=== PATIENT | female | born 1950 | race Caucasian/White ===

== ENCOUNTER 2018-08-29 08:02 | Outpatient (CLI) | payer OTHER ==
--- NOTE | 2018-08-29 08:52 | MMO ---
Bilateral MAMMO Bilat Screen [facility]DI+BLADIMIR. CLINICAL HISTORY: Patient is 68 years old and is seen for screening. The patient has the following family history of breast cancer: mother, at age 47, malignant (generic). The patient has no personal history of cancer. The patient has a history of left Excisional Biopsy more than 10 years ago - benign. VIEWS: The views performed were: bilateral craniocaudal with tomosynthesis; bilateral mediolateral oblique with tomosynthesis; and bilateral exaggerated craniocaudal. MAMMOGRAM FINDINGS: The breasts are heterogeneously dense, which could obscure a lesion on mammography. There is an area of architectural distortion seen in the lower-inner region of the left breast. In the right breast, there are no suspicious masses, calcifications or areas of architectural distortion. IMPRESSION: AREA OF ARCHITECTURAL DISTORTION IN THE LEFT BREAST REQUIRES ADDITIONAL EVALUATION. SPOT COMPRESSION IS RECOMMENDED. AN ULTRASOUND EXAM IS RECOMMENDED IF NEEDED. ADDITIONAL IMAGING. THE ABNORMALITY COULD REPRESENT POSTSURGICAL CHANGES. COMPRESSION VIEWS SHOULD BE PERFORMED WITH A SCAR MARKER IN PLACE. THE RESULTS OF THIS EXAM WERE SENT TO THE PATIENT. ACR BI-RADS Category 0 - Incomplete: Need additional imaging evaluation. [facility] will notify the patient of the need for additional imaging services. MAMMOGRAPHY NOTE: 1. A negative mammogram report should not delay a biopsy if a dominant of clinically suspicious mass is present. 2. Approximately 10% to 15% of breast cancers are not detected by mammography. 3. Adenosis and dense breasts may obscure an underlying neoplasm. Reported by: DAJUAN PENG MD Electonically Signed: [id number]
== END 2018-08-29 08:03 | disposition home or self-care (01) ==
LOC: BICMAMMO 08:02
PROVIDERS: ATTEND Family Medicine
DX: Z12.31 Encounter for screening mammogram for malignant neoplasm of breast (principal); Z80.3 Family history of malignant neoplasm of breast
CPT/HCPCS: 77063; 77067

== ENCOUNTER 2018-09-03 08:23 | Outpatient (CLI) | payer OTHER ==
--- NOTE | 2018-09-03 09:35 | MMO ---
Left Breast MAMMO Unilat Diag DDI LT+BLADIMIR. CLINICAL HISTORY: Patient is 68 years old and is seen for diagnostic exam. The patient has the following family history of breast cancer: mother, at age 47, malignant (generic). The patient has no personal history of cancer. The patient has a history of left Excisional Biopsy more than 10 years ago - benign. VIEWS: The views performed were: left craniocaudal spot compression with tomosynthesis; left mediolateral oblique spot compression with tomosynthesis; and left mediolateral with tomosynthesis. FILMS COMPARED: The present examination has been compared to prior imaging studies performed at [facility] on 08/29/2018 and 09/03/2018. MAMMOGRAM FINDINGS: The breast is heterogeneously dense, which could obscure a lesion on mammography. There is a high density, irregular mass measuring 22 millimeters with spiculated margins seen in the middle region of the left breast at 7 o'clock. IMPRESSION: MASS IN THE LEFT BREAST IS SUSPICIOUS. AN ULTRASOUND-GUIDED BREAST BIOPSY IS RECOMMENDED. THE PATIENT WAS NOTIFIED OF THE EXAM RESULTS PRIOR TO LEAVING THE CENTER. DR. FISHER AT THE OFFICE OF THE PATIENT'S REFERRING PHYSICIAN, DAJUAN FISHER, WAS NOTIFIED OF THE EXAM RESULTS BY TELEPHONE ON 09/03/18 AT 0924.. THE RESULTS OF THIS EXAM WERE SENT TO THE PATIENT. ACR BI-RADS Category 4 - Suspicious abnormality - biopsy should be considered MAMMOGRAPHY NOTE: 1. A negative mammogram report should not delay a biopsy if a dominant of clinically suspicious mass is present. 2. Approximately 10% to 15% of breast cancers are not detected by mammography. 3. Adenosis and dense breasts may obscure an underlying neoplasm. Reported by: AAYUSH BOLAÑOS MD Electonically Signed: [id number]
--- NOTE | 2018-09-03 10:20 | ULT ---
LEFT BREAST DIAGNOSTIC ULTRASOUND: INDICATION: Left breast mass. TECHNIQUE: Walsh scale color Doppler images were obtained of the left breast lesion within the lower inner aspect of the left breast. COMPARISON: Diagnostic left breast mammogram dated 09/03/2018 at 8:40 a.m. FINDINGS: There is a 2.2 x 1.4 x 1.4 cm spiculated hypoechoic mass within the left breast 7 o'clock position 4 cm from the nipple that likely corresponds to the mammographic abnormality. Limited evaluation of th e left axilla demonstrates no pathologically enlarged lymph nodes. IMPRESSION: BIRADS category 4 - suspicious abnormality. Recommend ultrasound-guided core biopsy of the spiculate d mass in the left breast 7 o'clock position 4 cm from the nipple. Please see the left breast diagno stic mammogram for further details. POS: OFF
== END 2018-09-03 08:24 | disposition home or self-care (01) ==
LOC: BICMAMMO 08:23
PROVIDERS: ATTEND Family Medicine
DX: R92.2 Inconclusive mammogram (principal); N63.24 Unspecified lump in the left breast, lower inner quadrant; Z80.3 Family history of malignant neoplasm of breast
CPT/HCPCS: G0279

== ENCOUNTER → 2018-09-11 | Day surgery (SDC) | payer OTHER ==
--- NOTE | 2018-09-11 14:16 | MMO ---
Left Breast MAMMO Unilat Diag DDI LT. CLINICAL HISTORY: Patient is 68 years old and is seen for diagnostic exam. The patient has the following family history of breast cancer: mother, at age 47, malignant (generic). The patient has no personal history of cancer. The patient has a history of left Excisional Biopsy more than 10 years ago - benign. VIEWS: The views performed were: left craniocaudal and left mediolateral oblique. FILMS COMPARED: The present examination has been compared to prior imaging studies performed at [facility] on 08/29/2018 and 09/03/2018. MAMMOGRAM FINDINGS: There is a biopsy clip seen in the left breast at 7 o'clock. IMPRESSION: BIOPSY CLIP IN THE LEFT BREAST IS CONFIRMED UTILIZING POST PROCEDURE MAMMOGRAM. THE RESULTS OF THIS EXAM WERE SENT TO THE PATIENT. MAMMOGRAPHY NOTE: 1. A negative mammogram report should not delay a biopsy if a dominant of clinically suspicious mass is present. 2. Approximately 10% to 15% of breast cancers are not detected by mammography. 3. Adenosis and dense breasts may obscure an underlying neoplasm. Reported by: BENJIE LANDERS MD Electonically Signed: [id number]
--- NOTE | 2018-09-11 17:08 | ULT ---
US Breast Bx US Guided ULTRASOUND GUIDED LEFT BREAST BIOPSY, WITH CLIP MARKER PLACEMENT: CLINICAL HISTORY: Massive lower inner left breast. PROCEDURE: Informed consent was obtained and the patient was escorted to the procedural suite, placed in supine position. The patient's skin was prepped and draped in a standard sterile fashion and topical anesthesia with buffered 1% lidocaine was performed. After a small skin incision was made, a 14-gauge needle was advanced to the leading edge of the left breast mass of interest. After adequate placement was confirmed with sonographic imaging, 5 subsequent core specimens were obtained via percu taneous biopsy. Subsequently, biopsy marking clip was deployed within the biopsy site, confirmed sonographically. No unexpected procedural complications were present. IMPRESSION: Technically successful percutaneous left breast biopsy. Pathology results are pending.
== END ==
LOC: BICULT 12:20
PROVIDERS: ATTEND Family Medicine
PROC: 0H9U3ZX Drainage of Left Breast, Percutaneous Approach, Diagnostic (ICD-10-PCS; principal; 2018-09-11)
DX: C50.312 Malignant neoplasm of lower-inner quadrant of left female breast (principal)
CPT/HCPCS: 19083; 88305; 88341; 88342

== ENCOUNTER 2018-11-05 16:27 | Outpatient (CLI) | payer OTHER ==
--- NOTE | 2018-11-05 16:58 | RAD ---
Lumbar spine 3 views HISTORY: Back pain. FINDINGS: There are 5 lumbar type vertebrae. Pedicles are intact. Mild leftward convex curvature. Det ail limited on the frontal view somewhat due to large amount of stool throughout the colon. Vertebral body heights and AP alignment are maintained. Mild osteophytosis. IMPRESSION: Mild degenerative changes. No evidence of compression fracture.
== END 2018-11-05 16:28 | disposition home or self-care (01) ==
LOC: SCSRAD 16:27
PROVIDERS: ATTEND Physician Assistant
DX: M79.604 Pain in right leg (principal); M47.816 Spondylosis without myelopathy or radiculopathy, lumbar region
CPT/HCPCS: 72100

== ENCOUNTER 2020-07-17 09:20 | Outpatient (CLI) | payer OTHER | END 2020-07-17 09:21 | disposition home or self-care (01) | LOC: BICMAMMO 09:20 | PROVIDERS: ATTEND Internal Medicine Hematology & Oncology | DX: M85.89 Other specified disorders of bone density and structure, multiple sites (principal); C50.112 Malignant neoplasm of central portion of left female breast | CPT/HCPCS: 77080 ==